=== PATIENT | female | born 1975 | race African-American/Black ===

== ENCOUNTER 2016-07-09 17:49 | Emergency (ER) | payer BC, OTHER ==
[~2016-07-09] VITALS: Ht 154.9 cm; Wt 74.3 kg
[~2016-07-09 17:49] MED LIST: COLACE100 MG PO; DOCUSATE SODIU100 MG PO; ENDOCET 5-3251 EACH PO; IBUPROFEN800 MG PO; IRON18 MG PO; MIRALAX17 GM PO; MOBIC15 MG PO; MOTRIN600 MG PO; NAPROSYN500 MG PO; PRENATAL TABLE1 EAC3 PO
[2016-07-09 19:11] LABS: EOSINOPHIL (%) 1.4 % (0-5); EOSINOPHIL COUNT 0.1 K/uL (0-0.3); HEMATOCRIT 34.3 % (36.0-46.0); IMMATURE GRANULOCYTE (%) 0.2 % (0.0-0.7); IMMATURE GRANULOCYTE COUNT 0.2 K/uL; LYMPHOCYTE COUNT 2.1 K/uL (1.0-2.8); MCH 31.1 PG (29.0-34.0); MCHC 33.5 G/DL (30.0-36.0); MCV 92.7 FL (83-99); MEAN PLAT.VOLUME 9.5 uM^3 (9.5-12.4); MONOCYTE (%) 4.3 % (3-12); MONOCYTE COUNT 0.4 K/uL (0-0.8); NEUTROPHIL (%) 73.3 % (45-76); NEUTROPHIL COUNT 7.4 K/uL (1.8-6.4); RBC DIS.WIDTH-CV 12.3 % (11.8-14.6); RBC DIS.WIDTH-SD 39.7 % (39-53); WHITE BLOOD COUNT 10.1 K/uL (4.1-10.2)
[2016-07-09 19:12] LABS: PLATELET COUNT 539 K/uL (156-360)
[2016-07-09 19:16] LABS: CHLORIDE 108 mEq/L (99-109); SODIUM 141 mEq/L (136-147)
[2016-07-09 19:18] LABS: GLUCOSE 84 mg/dL (70-99)
[2016-07-09 19:19] LABS: ANION GAP 13 MEQ/L (2-14)
[2016-07-09 19:20] LABS: TOTAL BILIRUBIN 0.7 mg/dL (0.0-1.0)
[2016-07-09 19:22] LABS: ALKALINE PHOSPHATASE 69 IU/L (3-129); GFR ESTIMATE (CALCULATED) > 59 mL/min/
[2016-07-09 19:23] LABS: UREA NITROGEN (BUN) 10 mg/dL (9-23)
[2016-07-09 19:25] LABS: URIC ACID 5.4 mg/dL (3.1-9.2)
[2016-07-09 20:00] LABS: ERTH.SED.RATE 43 MM/HR (0-20)
[2016-07-09 20:03] LABS: PROTHROMBIN TIME 10.5 (9.2-11.2); PTT 27.4 (25-32)
[2016-07-09 20:07] LABS: MAGNESIUM 1.9 mg/dL (1.3-2.7)
[2016-07-09 23:04] VITALS: BP 160/77
== END 2016-07-09 23:19 | disposition short-term general hospital (02) ==
LOC: EME 17:49
PROVIDERS: Emergency Medicine
DX: O99.43 Diseases of the circulatory system complicating the puerperium (principal); I60.8 Other nontraumatic subarachnoid hemorrhage; I16.9 Hypertensive crisis, unspecified; Z91.040 Latex allergy status
CPT/HCPCS: 70450; 80053; 81003; 83735; 84550; 85025; 85610; 85651; 85730; 99281; 99285; J0360; J1953; J2270; J2765; J3010; J7050

== ENCOUNTER 2016-07-22 13:25 | Emergency (ER) | payer BC, OTHER ==
[~2016-07-22] VITALS: Ht 154.9 cm; Wt 72.6 kg
[2016-07-22] MEDS ORDERED: CAPOTEN12.5 MG PO (15:35)
[2016-07-22] MEDS ORDERED: ADALAT CC 30 MG30 MG PO (15:35)
[2016-07-22] MEDS ORDERED: LEVETIRACETAM500 MG PO (15:35)
[2016-07-22] MEDS ORDERED: TYLENOL REGULA325 MG PO (15:36)
[2016-07-22 16:40] LABS: ADD MIUA? NO; BILIRUBIN NEGATIVE; BLOOD NEGATIVE; COLOR YELLOW ((YELLOW)); GLUCOSE (STRIP) NEGATIVE; KETONES NEGATIVE; LEUKOCYTES NEGATIVE; NITRITE NEGATIVE; PROTEIN (STRIP) NEGATIVE; SPECIFIC GRAVITY 1.019 (1.000-1.030); UROBILINOGEN 0.2 MG/DL (0.2-1.0)
[2016-07-22 16:53] LABS: EOSINOPHIL COUNT 0.2 K/uL (0-0.3); HEMATOCRIT 38.3 % (36.0-46.0); IMMATURE GRANULOCYTE (%) 0.2 % (0.0-0.7); IMMATURE GRANULOCYTE COUNT 0.1 K/uL; MCH 30.5 PG (29.0-34.0); MCHC 33.2 G/DL (30.0-36.0); MCV 91.8 FL (83-99); MEAN PLAT.VOLUME 10.1 uM^3 (9.5-12.4); MONOCYTE (%) 7.3 % (3-12); MONOCYTE COUNT 0.5 K/uL (0-0.8); NEUTROPHIL (%) 57.1 % (45-76); NEUTROPHIL COUNT 3.7 K/uL (1.8-6.4); PLATELET COUNT 460 K/uL (156-360); RBC DIS.WIDTH-CV 12.4 % (11.8-14.6); RBC DIS.WIDTH-SD 40.4 % (39-53); RED BLOOD COUNT 4.17 M/uL (3.80-5.20)
[2016-07-22 16:54] LABS: WHITE BLOOD COUNT 6.4 K/uL (4.1-10.2)
[2016-07-22 17:31] LABS: CHLORIDE 103 mEq/L (99-109); POTASSIUM 3.9 mEq/L (3.7-5.4); SODIUM 139 mEq/L (136-147)
[2016-07-22 17:34] LABS: GLUCOSE 93 mg/dL (70-99)
[2016-07-22 17:35] LABS: ANION GAP 12 MEQ/L (2-14)
[2016-07-22 17:36] LABS: TOTAL BILIRUBIN 0.5 mg/dL (0.0-1.0)
[2016-07-22 17:37] LABS: ALKALINE PHOSPHATASE 72 IU/L (3-129); GFR ESTIMATE (CALCULATED) > 59 mL/min/
[2016-07-22 17:38] LABS: UREA NITROGEN (BUN) 10 mg/dL (9-23)
[2016-07-22] MEDS ORDERED: FIORICET 50-301 EACH PO (19:38)
[2016-07-22 19:58] VITALS: BP 114/66
== END 2016-07-22 19:58 | disposition left against medical advice (07) ==
LOC: EME 13:25
PROVIDERS: Physician Assistant
DX: R51 Headache (principal); I10 Essential (primary) hypertension; Z91.040 Latex allergy status; Z86.79 Personal history of other diseases of the circulatory system
CPT/HCPCS: 70450; 80053; 81003; 85025; 99281; 99284

== ENCOUNTER 2017-07-01 05:57 | Inpatient (IN) | payer BC, OTHER ==
[~2017-07-01] VITALS: Ht 154.9 cm; Wt 87.2 kg
[~2017-07-01 05:57] MED LIST changes: +ADALAT CC 30 MG30 MG PO; +ASPIRIN81 M2 PO; +CAPOTEN12.5 MG PO; +FIORICET 50-301 EACH PO; +LEVETIRACETAM500 MG PO; +TYLENOL REGULA325 MG PO
[2017-07-01 06:51] VITALS: BP 139/65
[2017-07-01 07:25] LABS: BASOPHIL (%) 0.2 % (0-1); EOSINOPHIL (%) 1.1 % (0-5); EOSINOPHIL COUNT 0.1 K/uL (0-0.3); HEMATOCRIT 28.2 % (36.0-46.0); HEMOGLOBIN 9.2 G/DL (11.9-15.5); IMMATURE GRANULOCYTE (%) 0.2 % (0.0-0.7); LYMPHOCYTE (%) 25.5 % (15-42); LYMPHOCYTE COUNT 2.1 K/uL (1.0-2.8); MCH 30.4 PG (29.0-34.0); MCHC 32.6 G/DL (30.0-36.0); MCV 93.1 FL (83-99); MONOCYTE (%) 7.7 % (3-12); MONOCYTE COUNT 0.7 K/uL (0-0.8); NEUTROPHIL (%) 65.3 % (45-76); NEUTROPHIL COUNT 5.5 K/uL (1.8-6.4); PLATELET COUNT 306 K/uL (156-360); RBC DIS.WIDTH-CV 13.2 % (11.8-14.6); RBC DIS.WIDTH-SD 44.7 % (39-53); RED BLOOD COUNT 3.03 M/uL (3.80-5.20); WHITE BLOOD COUNT 8.4 K/uL (4.1-10.2)
[2017-07-01 07:38] LABS: ALBUMIN 3.1 G/DL (3.2-4.8); CHLORIDE 105 MEQ/L (99-109); POTASSIUM 3.5 MEQ/L (3.7-5.4); SODIUM 137 MEQ/L (136-147); TOTAL BILIRUBIN 0.7 MG/DL (0.0-1.0)
[2017-07-01 07:43] LABS: ALKALINE PHOSPHATASE 81 IU/L (3-129); ALT (GPT) 6 IU/L (3-49); AST (GOT) 11 IU/L (2-34); CREATININE 0.4 MG/DL (0.6-1.3); GFR ESTIMATE (CALCULATED) > 59 mL/min/; GLUCOSE 97 mg/dL (70-99); TOTAL PROTEIN 6.2 G/DL (6.4-8.3); UREA NITROGEN (BUN) 4 mg/dL (9-23)
[2017-07-01] MEDS ORDERED: ZANTAC75 M1 PO (07:50)
[2017-07-01 11:39] VITALS: BP 118/67
[2017-07-01 13:40] VITALS: BP 119/67
[2017-07-01 15:59] VITALS: BP 122/65
[2017-07-01 17:35] VITALS: BP 127/64
[2017-07-01 19:47] VITALS: BP 111/54
[2017-07-02] VITALS (11 sets, daily range): BP systolic 94–114; BP diastolic 50–59
[2017-07-02 06:36] LABS: BASOPHIL (%) 0.2 % (0-1); EOSINOPHIL (%) 0.1 % (0-5); HEMATOCRIT 19.9 % (36.0-46.0); IMMATURE GRANULOCYTE (%) 0.4 % (0.0-0.7); LYMPHOCYTE (%) 16.9 % (15-42); MCH 29.3 PG (29.0-34.0); MCHC 31.7 G/DL (30.0-36.0); MCV 92.6 FL (83-99); MONOCYTE (%) 7.2 % (3-12); MONOCYTE COUNT 0.8 K/uL (0-0.8); NEUTROPHIL (%) 75.2 % (45-76); NEUTROPHIL COUNT 8.7 K/uL (1.8-6.4); PLATELET COUNT 258 K/uL (156-360); RBC DIS.WIDTH-CV 13.4 % (11.8-14.6); RBC DIS.WIDTH-SD 44.5 % (39-53); WHITE BLOOD COUNT 11.6 K/uL (4.1-10.2)
[2017-07-02 06:41] LABS: RED BLOOD COUNT 2.15 M/uL (3.80-5.20)
[2017-07-02 06:43] LABS: HEMOGLOBIN 6.3 G/DL (11.9-15.5)
[2017-07-03 06:25] LABS: BASOPHIL (%) 0.4 % (0-1); BASOPHIL COUNT 0.1 K/uL (0-0.1); EOSINOPHIL (%) 1.1 % (0-5); EOSINOPHIL COUNT 0.1 K/uL (0-0.3); HEMATOCRIT 23.8 % (36.0-46.0); HEMOGLOBIN 7.7 G/DL (11.9-15.5); IMMATURE GRANULOCYTE (%) 0.6 % (0.0-0.7); LYMPHOCYTE (%) 30.3 % (15-42); LYMPHOCYTE COUNT 3.4 K/uL (1.0-2.8); MCH 29.5 PG (29.0-34.0); MCHC 32.4 G/DL (30.0-36.0); MCV 91.2 FL (83-99); MONOCYTE (%) 8.1 % (3-12); MONOCYTE COUNT 0.9 K/uL (0-0.8); NEUTROPHIL (%) 59.5 % (45-76); NEUTROPHIL COUNT 6.6 K/uL (1.8-6.4); NRBC (%) 0.2 /100 WBC (0-0); PLATELET COUNT 226 K/uL (156-360); RBC DIS.WIDTH-CV 14.5 % (11.8-14.6); RBC DIS.WIDTH-SD 47.2 % (39-53); WHITE BLOOD COUNT 11.1 K/uL (4.1-10.2)
[2017-07-03 06:30] LABS: RED BLOOD COUNT 2.61 M/uL (3.80-5.20)
[2017-07-03 07:10] VITALS: BP 114/64
[2017-07-03 15:00] VITALS: BP 127/62
[2017-07-03 23:08] VITALS: BP 152/68
[2017-07-04] VITALS (10 sets, daily range): BP systolic 129–157; BP diastolic 42–78
[2017-07-04 13:33] LABS: HEMATOCRIT 27.7 % (36.0-46.0); HEMOGLOBIN 9.2 G/DL (11.9-15.5); MCH 30.9 PG (29.0-34.0); MCHC 33.2 G/DL (30.0-36.0); NRBC (%) 0.2 /100 WBC (0-0); PLATELET COUNT 279 K/uL (156-360); RBC DIS.WIDTH-CV 14.1 % (11.8-14.6); RBC DIS.WIDTH-SD 47.5 % (39-53); RED BLOOD COUNT 2.98 M/uL (3.80-5.20); WHITE BLOOD COUNT 8.7 K/uL (4.1-10.2)
[2017-07-04 13:48] LABS: ALBUMIN 2.9 G/DL (3.2-4.8); CHLORIDE 103 MEQ/L (99-109); POTASSIUM 3.9 MEQ/L (3.7-5.4); SODIUM 138 MEQ/L (136-147); TOTAL BILIRUBIN 0.7 MG/DL (0.0-1.0)
[2017-07-04 13:54] LABS: ALKALINE PHOSPHATASE 69 IU/L (3-129); CREATININE 0.5 MG/DL (0.6-1.3); GFR ESTIMATE (CALCULATED) > 59 mL/min/; GLUCOSE 75 mg/dL (70-99); LACTATE DEHYDROGENASE 255 IU/L (20-246); TOTAL PROTEIN 5.7 G/DL (6.4-8.3); UREA NITROGEN (BUN) 12 mg/dL (9-23); URIC ACID 4.1 mg/dL (3.1-9.2)
[2017-07-04 13:59] LABS: ALT (GPT) 12 IU/L (3-49); AST (GOT) 21 IU/L (2-34)
[2017-07-05] VITALS (14 sets, daily range): BP systolic 130–164; BP diastolic 62–77
[2017-07-06 05:00] VITALS: BP 122/58
[2017-07-06 07:20] VITALS: BP 130/72
[2017-07-06 08:41] VITALS: BP 108/59
[2017-07-06 10:47] VITALS: BP 119/57
[2017-07-06 15:37] VITALS: BP 132/60
[2017-07-06] MEDS ORDERED: FERROUS SULFAT325 MG PO (16:18)
[2017-07-06] MEDS ORDERED: ENDOCET 5-3251 EACH PO (16:18)
[2017-07-06] MEDS ORDERED: ASCORBIC ACID500 M3 PO (16:18)
[2017-07-06] MEDS ORDERED: PROCARDIA XL30 MG PO (16:24)
[2017-07-06 17:52] VITALS: BP 134/67
== END 2017-07-06 19:10 | disposition home or self-care (01) | DRG 765 ==
LOC: 2WEST 05:57 → 2SOUTH 14:17 → 2WEST 07-06 19:10
PROVIDERS: Obstetrics & Gynecology; Obstetrics & Gynecology Obstetrics
PROC: 10D00Z1 Extraction of Products of Conception, Low, Open Approach (ICD-10-PCS; principal; 2017-07-01)
PROC: 30233N1 Transfusion of Nonautologous Red Blood Cells into Peripheral Vein, Percutaneous Approach (ICD-10-PCS; 2017-07-02)
DX: O24.420 Gestational diabetes mellitus in childbirth, diet controlled (principal); D62 Acute posthemorrhagic anemia; O34.211 Maternal care for low transverse scar from previous cesarean delivery; Z37.0 Single live birth; Z3A.39 39 weeks gestation of pregnancy; O14.94 Unspecified pre-eclampsia, complicating childbirth; O34.13 Maternal care for benign tumor of corpus uteri, third trimester; D25.9 Leiomyoma of uterus, unspecified; O12.04 Gestational edema, complicating childbirth; O14.04 Mild to moderate pre-eclampsia, complicating childbirth; D50.9 Iron deficiency anemia, unspecified; O99.02 Anemia complicating childbirth; Z79.82 Long term (current) use of aspirin; Z83.3 Family history of diabetes mellitus; Z82.49 Family history of ischemic heart disease and other diseases of the circulatory system
CPT/HCPCS: 70450; 80053; 82570; 82948; 83615; 84156; 84550; 85025; 85027; 86703; 86803; 86850; 86900; 86901; 86920; 87086; J0690; J1100; J1170; J1200; J1885; J2274; J2405; J2765; J3010; J3475; J7120; P9040